=== PATIENT | male | born 1995 | race Two or more races ===

== ENCOUNTER 2021-07-04 17:09 | Emergency (ER) | payer SELFPAY ==
[~2021-07-04] VITALS: Ht 157.5 cm; Wt 65.4 kg
[2021-07-04 17:13] VITALS: BP 127/76
[2021-07-04] MEDS ORDERED: TETRACAINE 0.5% OPHTH SOLUTION 4ML BOTTLE. ONE (17:49)
[2021-07-04] MEDS ORDERED: TETRACAINE 0.5% OPHTH SOLUTION 4ML BOTTLE. OS ONE (18:00)
[2021-07-04] MEDS ORDERED: ERYT1OIN3 OD (18:09)
--- NOTE | 2021-07-04 18:12 | PHYS DOC ---
Past Medical History Past Surgical History: No Surgical History General Adult EDM: Chief Complaint: EYE PROBLEMS HPI: HPI: Patient is a 25 year old [male presents with foreign body in his left eye. Patient states that he was trying to cut a steel pipe when shaving hit his eye. Patient states it happened yesterday comes in after having increased amount of pain. Review of Systems: Review of Systems: Constitutional: Denies fever or chills. Eyes: Foreign body in eye. Eye pain denies change in visual acuity. HENT: Denies nasal congestion or sore throat. Respiratory: Denies cough or shortness of breath. Cardiovascular: Denies chest pain or edema. GI: Denies abdominal pain, nausea, vomiting, bloody stools or diarrhea. : Denies dysuria. Musculoskeletal: Denies back pain or joint pain. Integument: Denies rash. Neurologic: Denies headache, focal weakness or sensory changes. Endocrine: Denies polyuria or polydipsia. Lymphatic: Denies swollen glands. [ Psychiatric: Denies depression or anxiety. Heart Score: C/O Chest Pain: No Risk Factors: Risk Factors: DM, Current or recent (<one month) smoker, HTN, HLP, family history of CAD, obesity. Risk Scores: Score 0 - 3: 2.5% MACE over next 6 weeks - Discharge Home Score 4 - 6: 20.3% MACE over next 6 weeks - Admit for Clinical Observation Score 7 - 10: 72.7% MACE over next 6 weeks - Early Invasive Strategies Current Medications: Current Medications Medications (Trade) Dose Ordered Sig/Merrill Start Time Stop Time Status Last Admin Dose Admin Tetracaine HCl (Tetracaine) 40 drop STK-MED ONCE 07/04/21 17:49 07/04/21 17:50 DC Allergies: Allergies: Allergies Coded Allergies Type Severity Reaction Last Updated Verified No Known Drug Allergies 07/04/21 No Physical Exam: PE: Constitutional: Well developed, well nourished, no acute distress, non-toxic appearance. [] HENT: Normocephalic, atraumatic, bilateral external ears normal, oropharynx moist, no oral exudates, nose normal. [] Eyes: Slit-lamp exam exam was done. Metal foreign body patient has a corneal ulceration with remaining rust ring. PERRLA, EOMI, conjunctiva normal, no discharge. [] Neck: Normal range of motion, no tenderness, supple, no stridor. [] Cardiovascular:Heart rate regular rhythm, no murmur [] Lungs & Thorax: Bilateral breath sounds clear to auscultation [] Abdomen: Bowel sounds normal, soft, no tenderness, no masses, no pulsatile masses. [] Skin: Warm, dry, no erythema, no rash. [] Back: No tenderness, no CVA tenderness. [] Extremities: No tenderness, no cyanosis, no clubbing, ROM intact, no edema. [] Neurologic: Alert and oriented X 3, normal motor function, normal sensory function, no focal deficits noted. [] Psychologic: Affect normal, judgement normal, mood normal. [] Current Patient Data: Vital Signs: Vital Signs Date Time Temp Pulse Resp B/P (MAP) Pulse Ox O2 Delivery O2 Flow Rate FiO2 07/04/21 17:13 99.1 92 16 127/76 (93) 99 99.1 EKG: EKG: [] Radiology/Procedures: Radiology/Procedures: [] Course & Med Decision Making: Course & Med Decision Making Pertinent Labs and Imaging studies reviewed. (See chart for details) [] Patient is remaining respirating patient will be started on topical antibiotics and will be referred to an international exchange coordinator for further care. Stressed importance of following up. Patient verbalized understanding questions and concerns were addressed Libby Disclaimer: Libby Disclaimer: This electronic medical record was generated, in whole or in part, using a voice recognition dictation system. Foreign Body Removal Procedure Indication: Corneal foreign body Procedure: The area of the foreign body was the left eye. Local anesthesia over the foreign body site was tetracaine the foreign body was then removed after the procedure. The patient's tetanus status The patient tolerated the procedurewell Complications: Patient has a remaining rust ring. Patient will be referred to a international exchange coordinator. Departure Departure Impression: Primary Impression: Corneal foreign body with residual material Disposition: HOME / SELF CARE / HOMELESS Condition: STABLE Referrals: WING LIANG MD Patient Instructions: Eye - Corneal Foreign Body Scripts Erythromycin Base (Erythromycin) 1 Gm Oint...g. 1 GM OD 5XDAY PRIME for 10 Days, #1 UNIT Prov: HUSSAIN CHUNG DO 07/04/21 HUSSAIN CHUNG DO Jul 04, 2021 18:12
[2021-07-04] MEDS ORDERED: ERYTHROMYCIN 0.5% OPHTH OINTMENT 1GM TUBE. OS ONE (18:15)
[2021-07-04] MEDS ORDERED: DIPHTH,PERTUSS(ACELL),TET TOX 0.5 ML DISP.SYRIN. VAX IM ONE (18:30)
[2021-07-04] MEDS ORDERED: OXYC1TAB15 PO (18:42)
== END 2021-07-04 18:57 | disposition home or self-care (01) ==
LOC: ER 17:09
DX: T15.02XA Foreign body in cornea, left eye, initial encounter (principal); X58.XXXA Exposure to other specified factors, initial encounter; Y93.89 Activity, other specified; Y92.89 Other specified places as the place of occurrence of the external cause; Y99.8 Other external cause status
CPT/HCPCS: 65222; 90471; 90715; 99284